=== PATIENT | male | born 1980 | race African-American/Black ===

== ENCOUNTER 2020-08-05 01:40 | Emergency (ER) | payer MEDICARE, MEDICAID, OTHER ==
[~2020-08-05] VITALS: Ht 167.6 cm; Wt 97.0 kg
[2020-08-05] MEDS ORDERED: BACITRACIN ZINC OINT UDPKT TOP ONE (03:45)
[2020-08-05] MEDS ORDERED: TETANUS, DIPHTHERIA, PERTUSSIS VAC/PF 0.5ML (>7YR OLD) IM ONE (03:45)
[2020-08-05] MEDS ORDERED: ACETAMINOPHEN WITH CODEINE 300/30MG TABLET PO ONE (03:45)
[2020-08-05] MEDS ORDERED: LIDOCAINE HCL/PF 1% 10 MG/ML 5ML VIAL IJ ONE (03:45)
[2020-08-05 03:56] VITALS: BP 117/69
[2020-08-05] MEDS ORDERED: T3 PO (04:48)
[2020-08-05] MEDS ORDERED: BO1 TP (04:48)
== END 2020-08-05 05:10 | disposition home or self-care (01) ==
LOC: ER 01:40
DX: S61.216A Laceration without foreign body of right little finger without damage to nail, initial encounter (principal); W26.0XXA Contact with knife, initial encounter; Y93.89 Activity, other specified; Y92.89 Other specified places as the place of occurrence of the external cause; Y99.8 Other external cause status
CPT/HCPCS: 12002; 73130; 90471; 90715; 99283; J3490